=== PATIENT | male | born 1990 | race Caucasian/White ===

== ENCOUNTER 2016-07-11 13:33 | Emergency (ER) | payer SELFPAY ==
--- NOTE | 2016-07-11 14:24 | ED.PDOC ---
History of Present Illness - General Chief Complaint: Abdominal Pain Stated Complaint: left abdominal discomfort Time Seen by Provider: 07/11/16 14:22 Information Source: patient Exam Limitations: no limitations - History of Present Illness Initial Comments: He stated watching Tv at home last and had sudden on set of luq with nausea no vomiting pain got less able to eat breakfast but had recurrent episode this afternoon. Abdominal Pain Onset Location: LUQ Pain Radiation: no radiation Quality: dull, intermittent Timing/Duration: 1/2 hour, getting worse Improving Factors: nothing Worsening Factors: nothing Associated Symptoms: nausea/vomiting Review of Systems - Review of Systems Constitutional: States: no symptoms reported EENTM: States: no symptoms reported Respiratory: States: no symptoms reported Cardiology: States: no symptoms reported Gastrointestinal/Abdominal: States: see HPI Genitourinary: States: no symptoms reported Musculoskeletal: States: no symptoms reported Skin: States: no symptoms reported Neurological: States: no symptoms reported Endocrine: States: no symptoms reported Past Medical History (General) - Patient Medical History Hx Stroke: No Hx Asthma: Yes Hx Congestive Heart Failure: No Hx Diabetes: No Hx Hepatitis C: Yes Hx MRSA: No Surgical History: no surgical history - Vaccination History Hx Tetanus, Diphtheria Vaccination: Yes - within 5 years Hx Influenza Vaccination: No Hx Pneumococcal Vaccination: No - Social History Hx Tobacco Use: Yes Hx Alcohol Use: No Hx Substance Use: Yes - meth:1-2/wk Hx Substance Use Treatment: No Hx Depression: No - Female History Patient : No Family Medical History - Family History Mother Family History: No Known Living Status: Still Living Physical Exam - Physical Exam General Appearance: Alert, Anxious, No apparent distress Eyes, Ears, Nose, Throat Exam: PERRL/EOMI, normal ENT inspection, TMs normal, pharynx normal Neck: non-tender, full range of motion, supple, normal inspection Respiratory: chest non-tender, lungs clear, normal breath sounds, no respiratory distress Cardiovascular/Chest: regular rate, rhythm, no edema, no gallop, no JVD, no murmur Peripheral Pulses: No deficit Gastrointestinal/Abdominal: normal bowel sounds, tenderness - luq no peritoneal signs Progress - Results/Orders Results/Orders: 07/11/16 15:16 Hold Metformin x 48Hrs [id number] Laboratory Results WBC 11.0 K/mm3 (4.8-10.8) H 07/11/16 14:38 RBC 5.14 M/mm3 (4.70-6.10) 07/11/16 14:38 Hgb 15.3 gm/dL (14.0-18.0) 07/11/16 14:38 Hct 45.7 % (42.0-52.0) 07/11/16 14:38 MCV 88.9 fl (80.0-94.0) 07/11/16 14:38 MCH 29.9 pg (27.0-31.0) 07/11/16 14:38 MCHC 33.6 g/dL (33.0-37.0) 07/11/16 14:38 RDW 14.1 % (11.5-14.5) 07/11/16 14:38 Plt Count 156 K/mm3 (130-400) 07/11/16 14:38 MPV 9.5 fl (7.40-10.4) 07/11/16 14:38 Absolute Neuts (auto) 6.20 K/uL (1.8-6.8) 07/11/16 14:38 Absolute Lymphs (auto) 3.80 K/uL (1.0-3.4) H 07/11/16 14:38 Absolute Monos (auto) 0.80 K/uL (0.2-0.8) 07/11/16 14:38 Absolute Eos (auto) 0.10 K/uL (0.0-0.4) 07/11/16 14:38 Absolute Basos (auto) 0.00 K/uL (0.0-0.1) 07/11/16 14:38 Neutrophils % 56.2 % (42.0-78.0) 07/11/16 14:38 Lymphocytes % 34.8 % (20.0-50.0) 07/11/16 14:38 Monocytes % 7.4 % (2.0-9.0) 07/11/16 14:38 Eosinophils % 1.2 % (1.0-5.0) 07/11/16 14:38 Basophils % 0.4 % (0.0-2.0) 07/11/16 14:38 Sodium 137 mmol/L (135-145) 07/11/16 14:38 Potassium 3.8 mmol/L (3.6-5.0) 07/11/16 14:38 Chloride 101 mmol/L (101-111) 07/11/16 14:38 Carbon Dioxide 30 mmol/L (21-31) 07/11/16 14:38 Anion Gap 9.8 (12-18) L 07/11/16 14:38 BUN 19 mg/dL (7-18) H 07/11/16 14:38 Creatinine 0.77 mg/dL (0.6-1.3) 07/11/16 14:38 BUN/Creatinine Ratio 24.7 (10-20) H 07/11/16 14:38 Random Glucose 87 mg/dL (70-105) 07/11/16 14:38 Serum Osmolality 275.4 mOsm/L (275-295) 07/11/16 14:38 Calcium 9.3 mg/dL (8.4-10.2) 07/11/16 14:38 Total Bilirubin 0.6 mg/dL (0.2-1.0) 07/11/16 14:38 AST 78 IU/L (10-42) H 07/11/16 14:38 ALT 148 IU/L (10-60) H 07/11/16 14:38 Alkaline Phosphatase 52 IU/L (42-121) 07/11/16 14:38 Serum Total Protein 7.1 gm/dL (6.4-8.2) 07/11/16 14:38 Albumin 4.3 g/dl (3.2-5.5) 07/11/16 14:38 Globulin 2.8 gm/dL (2.3-3.5) 07/11/16 14:38 Albumin/Globulin Ratio 1.5 (1.1-1.9) 07/11/16 14:38 Lipase 24 U/L (22-51) 07/11/16 14:38 Urine Color Yellow (Yellow) 07/11/16 15:24 Urine Appearance Clear (Clear) 07/11/16 15:24 Urine pH 5.5 (4.5-7.8) 07/11/16 15:24 Ur Specific [place] 1.025 (1.005-1.030) 07/11/16 15:24 Urine Protein Negative mg/dL 07/11/16 15:24 Urine Glucose (UA) Negative mg/dL (Negative) 07/11/16 15:24 Urine Ketones Negative mg/dL (NEGATIVE) 07/11/16 15:24 Urine Blood Negative (Negative) 07/11/16 15:24 Urine Nitrite Negative 07/11/16 15:24 Urine Bilirubin Negative (NEGATIVE) 07/11/16 15:24 Urine Urobilinogen 0.2 mg/dL (0.2-1.0) 07/11/16 15:24 Ur Leukocyte Esterase Negative (Negative) 07/11/16 15:24 Urine RBC 0 /hpf 07/11/16 15:24 Urine WBC 0 /hpf 07/11/16 15:24 Ur Epithelial Cells 1-3 /hpf 07/11/16 15:24 Urine Bacteria 0 07/11/16 15:24 Urine Opiates Screen Negative ng/mL (2000) 07/11/16 14:27 Urine Barbiturates Negative ng/mL (200) 07/11/16 14:27 Ur Phencyclidine Scrn Negative ng/mL (25) 07/11/16 14:27 U Amphetamin/Meth Scrn Negative ng/mL (1000) 07/11/16 14:27 U Benzodiazepines Scrn Positive ng/mL (200) H 07/11/16 14:27 U Cocaine Metab Screen Negative ng/mL (300) 07/11/16 14:27 U Cannabinoids Screen Negative ng/mL (50) 07/11/16 14:27 - EKG/XRAY/CT CT: abd/pelvis with iv contrast no acute pathology noted Departure - Departure Clinical Impression: Abdominal pain, acute, left upper quadrant Hepatitis C Qualifiers: Viral hepatitis chronicity: unspecified Time of Disposition: 16:40 Disposition: Discharge to Home or Self Care Condition: Good Departure Forms: ED Discharge - Pt. Copy, Patient Portal Self Enrollment Instructions: DI for Abdominal Pain-Adult Diet: other - AVOID GREASY,SPICY FOODS Prescriptions: Ranitidine HCl [Eql Acid Kiln Door Builder Maximum] 150 mg PO BID #60 tab Acetaminophen W/ Codeine [Tylenol W/ CODEINE #3] 1 ea PO TID PRN #10 PRN Reason: Pain Home Medications: Ambulatory Orders Acetaminophen W/ Codeine [Tylenol W/ CODEINE #3] 1 ea PO TID PRN #10 07/11/16 Ranitidine HCl [Eql Acid Kiln Door Builder Maximum] 150 mg PO BID #60 tab 07/11/16 Additional Instructions: WILL FOLLOW UP WITH HER SISTER joel KYLE
[2016-07-11] MEDS ORDERED: PROMETHAZINE HCL INJ 25 MG/ML VIAL IM ONE (14:28)
[2016-07-11] MEDS ORDERED: LACTATED RINGERS 1,000 ML IVS ONE (14:29)
--- NOTE | 2016-07-11 16:07 | CT ---
EXAM DESCRIPTION: CT ABDOMEN AND PELVIS WITH INTRAVENOUS CONTRAST CLINICAL HISTORY: Abdominal pain. COMPARISON: None. TECHNIQUE: CT of the abdomen and pelvis was performed with intravenous contrast. Oral contrast was not given. The patient was injected with intravenous contrast. FINDINGS: The lung bases included on the exam demonstrate no acute findings. The liver, pancreas, spleen and the bilateral adrenal glands are unremarkable in appearance. The gallbladder is contracted The bilateral kidneys enhance in a normal fashion, without any evidence of hydronephrosis or focal mass lesions. The bilateral ureters are unremarkable. The urinary bladder is unremarkable. There is normal contrast opacification of the main as well as right and left portal veins and the splenic vein. The small bowel is unremarkable. There is no CT evidence of acute appendicitis. The ileocecal junction is unremarkable. There is no ileocecal mesenteric adenitis. There is no large bowel wall obstruction, colitis or acute diverticulitis. There is no pathological retroperitoneal or pelvic lymphadenopathy, free fluid or free air. There is no clinically significant aneurysmal dilatation of the abdominal aorta. There is no CT evidence of any clinically significant inguinal or ventral hernia. The visualized lower thoracic and the lumbar spine is unremarkable. The remainder of the pelvic structures appear unremarkable. IMPRESSION: There are no acute or significant findings on the current study Electronically signed by: Jose Heart MD 07/11/2016 16:05
[2016-07-11 17:05] VITALS: BP 128/79; TEMP 99; O2SAT 97
== END 2016-07-11 17:02 | disposition home or self-care (01) ==
LOC: ER 13:33
DX: R10.12 Left upper quadrant pain (principal); B19.20 Unspecified viral hepatitis C without hepatic coma; J45.909 Unspecified asthma, uncomplicated; Z87.891 Personal history of nicotine dependence
CPT/HCPCS: 36415; 74177; 80053; 81001; 83690; 85025; G0479; J2550; J7120

== ENCOUNTER 2017-07-30 18:41 | Emergency (ER) | payer OTHER ==
[2017-07-30 18:57] VITALS: TEMP 97.3
[2017-07-30] MEDS ORDERED: SODIUM CHLORIDE 0.9% 1000ML 1,000 ML IVS ONE (19:02)
[2017-07-30] MEDS ORDERED: ONDANSETRON INJ 4 MG/2 ML VIAL IV ONE (19:03)
--- NOTE | 2017-07-30 19:06 | ED.PDOC ---
History of Present Illness - General Chief Complaint: Headache Stated Complaint: headache, nausea Time Seen by Provider: 07/30/17 19:01 Source: patient, police Exam Limitations: intoxication - History of Present Illness Timing/Duration: unsure, 4-6 hours Severity: severe Associated Symptoms: headaches, malaise, nausea/vomiting Allergies/Adverse Reactions: Allergies Ketorolac Tromethamine [From Toradol] Allergy (Verified 07/11/16 14:13) Vomitting Penicillin G Adverse Reaction (Verified 05/30/16 18:19) Home Medications: Ambulatory Orders Acetaminophen W/ Codeine [Tylenol W/ CODEINE #3] 1 ea PO TID PRN #10 07/11/16 Ranitidine HCl [Eql Acid Wholesale Buyer Maximum] 150 mg PO BID #60 tab 07/11/16 Ondansetron Tab [Zofran Tab] 4 mg PO Q4HR #15 tab 07/30/17 Review of Systems - Review of Systems Constitutional: States: chills. Denies: fever EENTM: Denies: nose congestion, throat pain Respiratory: Denies: cough, short of breath Cardiology: Denies: chest pain, edema Gastrointestinal/Abdominal: States: nausea, vomiting. Denies: abdominal pain Genitourinary: States: no symptoms reported. Denies: dysuria Musculoskeletal: Denies: joint pain, joint swelling, muscle pain, neck pain Skin: Denies: rash Neurological: States: headache, weakness Endocrine: States: no symptoms reported Hematologic/Lymphatic: States: no symptoms reported Past Medical History (General) - Patient Medical History Hx Seizures: Yes Hx Stroke: No Hx Asthma: Yes Hx Congestive Heart Failure: No Hx Diabetes: No Hx Hepatitis C: Yes Hx MRSA: No Surgical History: no surgical history - Vaccination History Hx Tetanus, Diphtheria Vaccination: Yes Hx Influenza Vaccination: No Hx Pneumococcal Vaccination: No - Social History Hx Tobacco Use: Yes Hx Alcohol Use: No Hx Substance Use: Yes - heroin, meth, xanax, marijuanna Hx Substance Use Treatment: No Hx Depression: No - Female History Patient : No Family Medical History - Family History Mother Family History: No Known Living Status: Still Living Physical Exam - Physical Exam General Appearance: Lethargic, Unkempt Eye Exam: bilateral normal Ears, Nose, Throat: hearing grossly normal, normal pharynx Neck: non-tender, full range of motion Respiratory: lungs clear, normal breath sounds, no respiratory distress Cardiovascular/Chest: normal peripheral pulses, regular rate, rhythm, no edema Gastrointestinal/Abdominal: normal bowel sounds, tenderness Rectal Exam: deferred Back Exam: normal inspection Extremity: no pedal edema, other - multiple track coleman on both arms from iv drug abuse Neurologic: normal mood/affect, oriented x 3 Skin Exam: normal color, warm/dry, other - no cellulitis on arms Departure - Departure Clinical Impression: Drug abuse Headache Qualifiers: Headache type: unspecified Vomiting Qualifiers: Vomiting Intractability: non-intractable Disposition: Discharge to Home or Self Care Condition: Fair Departure Forms: ED Discharge - Pt. Copy, Patient Portal Self Enrollment Instructions: DI for Headache Prescriptions: Ondansetron Tab [Zofran Tab] 4 mg PO Q4HR #15 tab Home Medications: Ambulatory Orders Acetaminophen W/ Codeine [Tylenol W/ CODEINE #3] 1 ea PO TID PRN #10 07/11/16 Ranitidine HCl [Eql Acid Wholesale Buyer Maximum] 150 mg PO BID #60 tab 07/11/16 Ondansetron Tab [Zofran Tab] 4 mg PO Q4HR #15 tab 07/30/17
[2017-07-30] MEDS ORDERED: ACETAMINOPHEN 500 MG TAB ONE (19:27)
--- NOTE | 2017-07-30 19:47 | RAD ---
EXAM DESCRIPTION: Chest,1 View CLINICAL HISTORY: cough COMPARISON: None. FINDINGS: Cardiac silhouette is within normal limits. There is no focal parenchymal or pleural disease. Visualized osseous structures are within normal limits. IMPRESSION: No evidence of acute cardiopulmonary disease. Electronically signed by: Nash Ca 07/30/2017 7:46 PM [facility]PUT[facility]AIL[employer]
[2017-07-30] MEDS ORDERED: IBUPROFEN 200 MG TAB PO ONE (20:00)
[2017-07-30] MEDS ORDERED: IBUPROFEN 200 MG TAB ONE (20:01)
[2017-07-30] MEDS ORDERED: PROMETHAZINE HCL 25 MG TAB PO ONE (22:38)
[2017-07-30 22:43] VITALS: BP 102/53; O2SAT 96
== END 2017-07-30 23:00 | disposition home or self-care (01) ==
LOC: ER 18:41
DX: R51 Headache (principal); R11.10 Vomiting, unspecified; F19.10 Other psychoactive substance abuse, uncomplicated; Z86.19 Personal history of other infectious and parasitic diseases
CPT/HCPCS: 36415; 71045; 80053; 80307; 81001; 85025; J2405; J7030; Q0169

== ENCOUNTER 2018-04-25 09:49 | Emergency (ER) | payer SELFPAY ==
[2018-04-25 10:12] VITALS: TEMP 98.3
[2018-04-25] MEDS ORDERED: methylPREDNISolone ACETATE 80 MG/ML VIAL IM ONE (10:21)
--- NOTE | 2018-04-25 10:42 | RAD ---
EXAM DESCRIPTION: Elbow,Right 3 Views CLINICAL HISTORY: 27 years Male, OLECRANON LAT EPICONDYLE TTP, HAND PARESTHESIAS COMPARISON: None available. FINDINGS: The visualized bones are well-mineralized.No acute fracture or dislocation. The soft tissues appear grossly unremarkable. IMPRESSION: Normal radiographs of the right elbow. Electronically signed by: Rain Arce MD 04/25/2018 10:40 AM CDT
--- NOTE | 2018-04-25 10:51 | ED.PDOC ---
History of Present Illness - General Chief Complaint: Upper Extremity Injury Stated Complaint: right arm p;ain Time Seen by Provider: 04/25/18 10:09 Source: patient Exam Limitations: no limitations - History of Present Illness Initial Comments: R FOREARM PAIN. 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 HE NEVER HAD IT LOOKED AT. FINGERS GOING NUMB (IN ALL 5 DIGITS) AND GRAPHIC DESIGNER WEAKENING. HAS R ELBOW PAIN AT REST. Occurred: other - 2 MOS AGO Pain - Upper Extremity: moderate: Forearm, right, Hand, right, severe: Elbow, right Method of Injury: fell - PLUS REPETITIVE USE AT WORK. Improving Factors: rest Worsening Factors: other - USAGE Allergies/Adverse Reactions: Allergies Ketorolac Tromethamine [From Toradol] Allergy (Verified 07/11/16 14:13) Vomitting Penicillin G Adverse Reaction (Verified 05/30/16 18:19) Home Medications: Ambulatory Orders NK [NK] 04/25/18 Review of Systems - Review of Systems Constitutional: States: no symptoms reported EENTM: States: no symptoms reported Respiratory: States: no symptoms reported Cardiology: States: no symptoms reported Gastrointestinal/Abdominal: States: no symptoms reported Genitourinary: States: no symptoms reported Musculoskeletal: States: see HPI, joint pain. Denies: back pain, muscle stiffness Skin: States: no symptoms reported Neurological: States: numbness, paresthesia, weakness Endocrine: States: no symptoms reported Hematologic/Lymphatic: States: no symptoms reported All other Systems: Reviewed and Negative Past Medical History (General) - Patient Medical History Hx Seizures: Yes Hx Stroke: No Hx Asthma: Yes Hx Congestive Heart Failure: No Hx Diabetes: No Hx Hepatitis C: Yes Hx MRSA: No Surgical History: no surgical history - Vaccination History Hx Tetanus, Diphtheria Vaccination: Yes Hx Influenza Vaccination: No Hx Pneumococcal Vaccination: No - Social History Hx Tobacco Use: Yes Hx Alcohol Use: No Hx Substance Use: Yes - heroin, meth, xanax, marijuanna Hx Substance Use Treatment: No Hx Depression: No - Female History Patient : No Family Medical History - Family History Father Family History: Unknown Living Status: Age at (years of age): 21 Cause of : Brain Aneurysm Mother Family History: No Known Living Status: Still Living Physical Exam - Physical Exam General Appearance: Alert, Well Developed Eyes, Ears, Nose, Throat Exam: PERRL/EOMI, normal ENT inspection Neck: non-tender, full range of motion Cardiovascular/Respiratory: regular rate, rhythm, no M/R/G Abdominal Exam: non-tender, no organomegaly Back Exam: normal inspection, no CVA tenderness Shoulder Exam: normal inspection, non-tender, no evidence of injury Elbow/Forearm Exam: bone tenderness, pain, soft tissue tenderness, swelling - R OLECRANON AND LATERAL EPICONDYLE TTP ALONG BONY ASPECTS. POS R PROXIMAL FOREARM MILD SWELLING AND SOFT TISSUE TTP (BUT NOT TO WHERE I'M CONCERNED ABOUT COMPARTMENT SYNDROME). NO ERYTHEMA. WRIST AND HAND NTTP. 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 Mental Status: alert, oriented x 3 Skin Exam: normal color, warm/dry Progress - Progress Progress: 04/25/18 11:05 PT REFUSED THE STEROID SHOT. HE REQUESTED IBUPROFEN INSTEAD. 04/25/18 12:16 XRAY NEG. I SUSPECT CUBITAL TUNNEL SYNDROME WITH ULNAR OR RADIAL NERVE ENTRAPMENT, SINCE PT C/O OF NUMBNESS IN ALL 5 DIGITS. SX C/W LATERAL EPICONDYLITIS. RECOMMEND WRIST/FOREARM BRACE. PT REFUSED MEDROL DOSE PACK TO DECREASE THE INFLAMMATION. I RECOMMENDED HE F/U W/ DR. KRISHNA, ORTHO, FOR FURTHER EVALUATION. Departure - Departure Clinical Impression: Right elbow pain, Radiculopathy of arm, Lateral epicondylitis, right elbow, Cubital tunnel syndrome on right Disposition: Discharge to Home or Self Care Condition: Fair Departure Forms: ED Discharge - Pt. Copy, Patient Portal Self Enrollment Instructions: Cubital Tunnel Syndrome (DC) Diet: resume usual diet Activity: no pushing/pulling with affected limb Referrals: Bahman Krishna MD [Active Staff] - 1-2 Weeks Home Medications: Ambulatory Orders NK [NK] 04/25/18 Additional Instructions: Please follow-up with Dr. Krishna, orthopedics, to evaluate further for ulnar or radial nerve entrapment, resulting in the tingling and weakness of your hand.
[2018-04-25] MEDS ORDERED: IBUPROFEN 200 MG TAB PO ONE (11:01)
[2018-04-25 12:15] VITALS: BP 142/68; O2SAT 100
== END 2018-04-25 12:17 | disposition home or self-care (01) ==
LOC: ER 09:49
DX: M77.11 Lateral epicondylitis, right elbow (principal); G56.21 Lesion of ulnar nerve, right upper limb; J45.909 Unspecified asthma, uncomplicated; Z87.891 Personal history of nicotine dependence; Z86.19 Personal history of other infectious and parasitic diseases; Z88.0 Allergy status to penicillin; Z88.8 Allergy status to other drugs, medicaments and biological substances
CPT/HCPCS: 73080; J1030

== ENCOUNTER 2018-08-10 07:40 | Emergency (ER) | payer SELFPAY ==
[2018-08-10] MEDS: HYDROcodone 7.5MG/APAP 325MG 1 EA TAB PO ONE (08:56)
[2018-08-10] MEDS: SODIUM CHLORIDE 0.9% 1000ML 1,000 ML IVS ONE ×2 (09:50→11:39)
--- NOTE | 2018-08-10 09:56 | CT ---
EXAM DESCRIPTION: Head CLINICAL HISTORY: worst headache of life, frontal, drowsy COMPARISON: None TECHNIQUE: Noncontrast transaxial CT images of the head are obtained from base to vertex. Moderate streak artifact from patient motion limits detailed evaluation This exam was performed according to our departmental dose-optimization program, which includes automated exposure control, adjustment of the mA and/or kV according to patient size and/or use of iterative reconstruction technique. FINDINGS: The midline structures are not displaced. The sulci are age appropriate. The lateral, third, and fourth ventricles are normal in size, shape, and anatomic positioning. There is no evidence of mass, mass effect, hydrocephalus, or acute intracranial hemorrhage. No abnormal extra axial fluid collections are seen. Normal warren-white differentiation is seen. The visualized bone windows show no depressed skull fracture or significant abnormality. Mild mucosal thickening is seen in the ethmoid air cells and left maxillary sinus.. IMPRESSION: 1. No acute abnormality is seen on noncontrast CT of the head. 2. Mild subacute to chronic ethmoid and left maxillary sinusitis. Electronically signed by: Taurus Ptety MD 08/10/2018 9:54 AM [facility]
--- NOTE | 2018-08-10 11:31 | ED.PDOC ---
History of Present Illness - General Chief Complaint: Dental/Mouth Stated Complaint: Pt complains of severe teeth pain since 08/08 @ 1200 Time Seen by Provider: 08/10/18 07:48 Source: patient Exam Limitations: no limitations - History of Present Illness Initial Comments: the patient is a 27-year-old male presenting to the emergency room secondary to a headache. He reports that one of the worst his hand. He has had chronic daily headaches almost his entire life. It does not appear that he has had any previous extensive workup. He is well-known to nursing staff here as a drug user, including heroin in the past. He does appear moderately intoxicated though he is oriented 4. He is drowsy. No focal neurological deficits. Pupils are 2 mm bilaterally and minimally reactive. He does have poor dentition. He does appear to be intoxicated and likely coming down off of methamphetamine given his presentation. The patient reports that he has been up most of the night. Blood drug screen is a send out and the patient of course spilled his urinalysis sample so we are unable to test his urine at this time for drugs. no known trauma. No fever. No nuchal rigidity. No focal neurological changes. Timing/Duration: unsure Severity: severe Improving Factors: nothing Worsening Factors: nothing Associated Symptoms: malaise Allergies/Adverse Reactions: Allergies Ketorolac Tromethamine [From Toradol] Allergy (Verified 08/10/18 10:34) Vomitting Penicillin G Adverse Reaction (Verified 08/10/18 10:34) Home Medications: Ambulatory Orders NK 04/25/18 Review of Systems - Review of Systems Constitutional: States: malaise EENTM: States: nose congestion Respiratory: States: no symptoms reported Cardiology: States: no symptoms reported Gastrointestinal/Abdominal: States: no symptoms reported Genitourinary: States: no symptoms reported Musculoskeletal: States: no symptoms reported Skin: States: no symptoms reported Neurological: States: headache Endocrine: States: no symptoms reported All other Systems: No Change from Baseline Past Medical History (General) - Patient Medical History Hx Seizures: Yes Hx Stroke: No Hx Asthma: Yes Hx of COPD: No Hx Congestive Heart Failure: No Hx Diabetes: No Hx Hepatitis C: Yes Hx MRSA: No Surgical History: no surgical history - Vaccination History Hx Tetanus, Diphtheria Vaccination: Yes Hx Influenza Vaccination: Yes Hx Pneumococcal Vaccination: No Immunizations Up to Date: Yes - Social History Hx Tobacco Use: Yes Hx Alcohol Use: Yes Hx Substance Use: Yes - Not current Hx Substance Use Treatment: No Hx Depression: No - Female History Patient is a Female of Child Bearing Age (10 -59 yrs old): No Patient : No Family Medical History - Family History Father Family History: Unknown Living Status: Age at (years of age): 21 Cause of : Brain Aneurysm Mother Family History: No Known Living Status: Still Living Physical Exam - Physical Exam General Appearance: Other - he is drowsy. Eyes are bloodshot. He is oriented 4. Eye Exam: bilateral normal - bloodshot bilaterally Ears, Nose, Throat: hearing grossly normal, nasal congestion, other - poor dentition Neck: full range of motion, supple Respiratory: lungs clear, normal breath sounds, no respiratory distress, no accessory muscle use Cardiovascular/Chest: normal peripheral pulses, regular rate, rhythm, no edema Peripheral Pulses: radial,right: 2+, radial,left: 2+, dorsalis pedis,right: 2+, dorsalis pedis,left: 2+ Gastrointestinal/Abdominal: non tender, soft Rectal Exam: deferred Back Exam: no CVA tenderness, no vertebral tenderness Extremity: normal range of motion, non-tender, normal inspection, no pedal edema, normal capillary refill Neurologic: casey saw operator II-XII nml as tested, no motor/sensory deficits, oriented x 3 Skin Exam: normal color - multiple tattoos Comments: Vital Signs - 24 hr 08/10/18 08/10/18 08/10/18 07:55 08:41 09:46 Temperature 96.4 F L Pulse Rate [ 98 H 107 H 70 Left Radial] Respiratory 18 16 16 Rate Blood Pressure 101/77 97/68 100/70 [Left Arm] O2 Sat by Pulse 98 97 94 L Oximetry 08/10/18 08/10/18 10:28 11:30 Temperature Pulse Rate [ 83 65 Left Radial] Respiratory 16 16 Rate Blood Pressure 108/66 93/40 [Left Arm] O2 Sat by Pulse 95 90 L Oximetry Progress - Progress Progress: 08/10/18 11:33 the patient's a 27-year-old male presenting with a significant headache. This is most likely due to substance abuse and coming down from methamphetamine. It is highly suspected that the patient has opiates and methamphetamines onboard. We have been unable to check a urine drug screen to this point as the patient accidentally spilled a collection cup in the bathroom. No focal neurological changes. Head CT is negative. Laboratory work is otherwise reassuring. Blood drug screen is a send out, so little use at this time. He does have some very mild rhabdomyolysis which can go along with the methamphetamine use. He does have some mild dehydration and is receiving a liter of IV NS. We are going to continue to watch him for now. pressures running low normal range and the patient is responsive to voice and oriented. 08/10/18 14:14 the patient has been monitored for an extended period of time. Blood pressures continue to remain in the low normal range which is certainly appropriate for a young healthy male. No worsening of any mental status. No evidence of meningitis or encephalitis. The patient has received an additional liter of IV fluids. He reports that his headache is gone. He obviously needs to avoid substance abuse in the future. 08/10/18 14:17 ultimately the patient was unwilling to give a urinalysis to check for a urine drug screen. - Results/Orders Results/Orders: Laboratory Results - last 24 hr 08/10/18 08/10/18 08/10/18 09:26 09:26 09:26 WBC 8.4 RBC 4.69 L Hgb 14.0 Hct 41.4 L MCV 88.2 MCH 29.8 MCHC 33.7 RDW 13.3 Plt Count 175 MPV 8.4 Absolute Neuts (auto) 4.80 Absolute Lymphs (auto) 2.70 Absolute Monos (auto) 0.80 Absolute Eos (auto) 0.10 Absolute Basos (auto) 0.00 Neutrophils % 57.3 Lymphocytes % 31.9 Monocytes % 9.5 H Eosinophils % 0.9 L Basophils % 0.4 Sodium 135 Potassium 4.1 Chloride 102 Carbon Dioxide 28 Anion Gap 9.1 L BUN 17 Creatinine 0.92 BUN/Creatinine Ratio 18.5 Random Glucose 85 Serum Osmolality 270.9 L Lactic Acid 0.6 Calcium 8.7 Total Bilirubin 0.7 AST 41 ALT 46 Alkaline Phosphatase 50 Ammonia Creatine Kinase 418 H* CK-MB (CK-2) 8.4 H* CK-MB (CK-2) % 2.01 Troponin I < 0.02 Serum Total Protein 6.8 Albumin 4.0 Globulin 2.8 Albumin/Globulin Ratio 1.4 08/10/18 09:28 WBC RBC Hgb Hct MCV MCH MCHC RDW Plt Count MPV Absolute Neuts (auto) Absolute Lymphs (auto) Absolute Monos (auto) Absolute Eos (auto) Absolute Basos (auto) Neutrophils % Lymphocytes % Monocytes % Eosinophils % Basophils % Sodium Potassium Chloride Carbon Dioxide Anion Gap BUN Creatinine BUN/Creatinine Ratio Random Glucose Serum Osmolality Lactic Acid Calcium Total Bilirubin AST ALT Alkaline Phosphatase Ammonia 36 H Creatine Kinase CK-MB (CK-2) CK-MB (CK-2) % Troponin I Serum Total Protein Albumin Globulin Albumin/Globulin Ratio head CT shows no acute pathology. Departure - Departure Clinical Impression: Dehydration Headache Qualifiers: Headache type: unspecified Headache chronicity pattern: unspecified pattern Intractability: not intractable Qualified Code(s): R51 - Headache Rhabdomyolysis Qualifiers: Rhabdomyolysis type: non-traumatic Qualified Code(s): M62.82 - Rhabdomyolysis Disposition: Discharge to Home or Self Care Condition: Fair Departure Forms: ED Discharge - Pt. Copy, Patient Portal Self Enrollment Instructions: Dehydration, Adult (DC) Diet: regular diet Activity: increase activity as tolerated Home Medications: Ambulatory Orders NK 04/25/18 Additional Instructions: The patient needs to keep well-hydrated and oriented to prevent dehydration headaches. He needs to avoid substance abuse. He needs to follow-up with his primary care doctor in the next week. ER warnings were given for any significant worsening.
[2018-08-10 13:32] VITALS: O2SAT 95
[2018-08-10 14:29] VITALS: BP 101/44; TEMP 96.9
== END 2018-08-10 14:29 | disposition home or self-care (01) ==
LOC: ER 07:40
DX: R51 Headache (principal); E86.0 Dehydration; M62.82 Rhabdomyolysis; K08.89 Other specified disorders of teeth and supporting structures; J45.909 Unspecified asthma, uncomplicated; Z86.19 Personal history of other infectious and parasitic diseases; Z88.0 Allergy status to penicillin; Z88.8 Allergy status to other drugs, medicaments and biological substances
CPT/HCPCS: 70450; 80053; 82140; 82550; 82553; 83605; 84484; 85025; 87502; J7030

== ENCOUNTER 2020-03-24 11:22 | Emergency (ER) | payer SELFPAY ==
--- NOTE | 2020-03-24 11:28 | ED.PDOC ---
History of Present Illness - General Time Seen by Provider: 03/24/20 11:23 - History of Present Illness Initial Comments: 29 yo RHD male was working on roof and fell off his ladder with FOOSH. Did not hit head. Complains of forearm pain. Denies any other injuries. Ambulates w ithout difficulty. no prior injury. denies numbness or tingling. Allergies/Adverse Reactions: Allergies Ketorolac Tromethamine [From Toradol] Allergy (Verified 03/24/20 12:35) Vomitting Penicillin G Adverse Reaction (Verified 03/24/20 12:35) Home Medications: Ambulatory Orders NK 04/25/18 Review of Systems - Review of Systems Constitutional: Denies: chills, fever EENTM: Denies: blurred vision, throat swelling, mouth pain, mouth swelling Respiratory: Denies: short of breath, stridor, wheezing Cardiology: Denies: chest pain, palpitations, syncope Gastrointestinal/Abdominal: Denies: abdominal pain, nausea, vomiting Genitourinary: Denies: frequency, hematuria, pain Musculoskeletal: States: joint pain, joint swelling. Denies: back pain, neck pain Skin: Denies: change in color, rash Neurological: Denies: headache, numbness, paresthesia, seizure, tingling, tremors, weakness Endocrine: Denies: unexplained weight gain, unexplained weight loss Hematologic/Lymphatic: Denies: blood clots, easy bleeding, easy bruising Past Medical History (General) - Patient Medical History Hx Seizures: Yes Hx Stroke: No Hx Asthma: Yes Hx of COPD: No Hx Congestive Heart Failure: No Hx Diabetes: No Hx Hepatitis C: Yes Hx MRSA: No - Vaccination History Hx Tetanus, Diphtheria Vaccination: Yes Hx Influenza Vaccination: Yes Hx Pneumococcal Vaccination: No - Social History Hx Tobacco Use: Yes Hx Alcohol Use: Yes Hx Substance Use: Yes - Not current Hx Substance Use Treatment: No Hx Depression: No - Female History Patient : No Family Medical History - Family History Father Family History: Unknown Living Status: Age at (years of age): 21 Cause of : Brain Aneurysm Mother Family History: No Known Living Status: Still Living Physical Exam - Physical Exam General Appearance: Alert, Comfortable, No apparent distress, Well Developed, Well Groomed, Well Hydrated, Well Nourished Head Injury: no evidence of injury, other - no battler sign, Atraumatic, normocephalic without edema, discoloration or evidence of trauma. Facial bones without deformities or tenderness. Eye Exam: bilateral normal - No scleral icterus or conjunctival injection. E xtraocular muscles intact without nystagmus or diplopia. No proptosis or enophthalmos. ENT Exam: hearing grossly normal, no evidence of ENT injury, no dental injury, other - Normal appearing pinnae. No hemotympanum. Neck Exam: non-tender, full range of motion, normal alignment, normal inspection - Trachea midline. No discolorations or edema Cardiovascular/Respiratory: regular rate, rhythm, no M/R/G, normal peripheral pulses - Radial pulses 2+ bilaterally and symmetric. Dorsalis pedis pulses 2+ bilaterally and symmetric. 2+ capillary refill. No extremity edema., no JVD, other - No abrasions or ecchymosis. Chest symmetric with respirations. No chest wall tenderness. No crepitus. No step offs. Lungs are clear to auscultation bilaterally. No rales, rhonchi, wheezing or stridor. Back Exam: normal inspection, no CVA tenderness, no vertebral tenderness Extremity Exam: normal range of motion, other - right mid/lateral forearm swelling, Symmetrically palpable radial and ulnar pulses. Capillary refill <2 seconds to all digits. no snuffbox tenderness Neurologic: no motor/sensory deficits, alert, normal mood/affect, oriented x 3, other - Alert and oriented to person, place, and time. GCS 15. CN II-XII intact. Sensation grossly intact. Strength 5/5 in bilateral UE and LE. Finger to nose intact bilaterally. Skin Exam: normal color, warm/dry Comments: Hand exam: Intact sensation to light touch of the radial, median and ulnar nerves demonstrated by testing in the dorsal web space of the thumb, the distal palmar aspect of the index finger, and the lateral surface of the fifth finger. 2 point discrimination intact Intact motor function of the radial, median and ulnar nerves demonstrated by strength of extension of the isolated distal joint of the index finger, hand process engineering manager, and spreading of the 2nd through 5th digits. Intact recurrent median nerve as demonstrated by ability to move thumb fully through opposition, abduction and flexion. - [place] Coma Score Best Eye Response ([place]): (4) open spontaneously Best Verbal Response ([place]): (5) oriented Best Motor Response ([place]): (6) obeys commands [place] Total: 15 Progress - Progress Progress: Partail ddx: wrist fracture, forearm fracture, sprain. Right forearm/hand/wrist xray shows no acute fractures. Girish wrap placed. The data reviewed when caring for this patient included: nurse notes etc. . My assessment and the results of testing completed here in the ED were discussed with the patient. All questions were answered, and he express understanding of my assessment and the plan. He have been instructed to return if their symptoms worsen, and have been asked to follow up with their primary care physician to recheck today's presenting complaint. Patient states he can take motrin without any issues, Motrin/Tylenol prn pain.Alejandra Levin DO #[id number] Departure - Departure Clinical Impression: Sprain of forearm Qualifiers: Encounter type: initial encounter Laterality: right Qualified Code(s): S63.501A - Unspecified sprain of right wrist, initial encounter ICD-10 Supporting Text: fall Time of Disposition: 12:34 Disposition: Discharge to Home or Self Care Instructions: Wrist Sprain (DC) Activity: increase activity as tolerated Home Medications: Ambulatory Orders NK 04/25/18
[2020-03-24] MEDS ORDERED: HYDROcodone 5MG/APAP 325MG 1 EA TAB PO ONE (11:47)
--- NOTE | 2020-03-24 12:29 | RAD ---
EXAM DESCRIPTION: Forearm,Right (accession [id number]), Hand,Right 3 Views (accession [id number]), Wrist,Right 3 Views (accession [id number]) CLINICAL HISTORY: 29 years Male, fall COMPARISON: None. FINDINGS: RIGHT WRIST THREE X-RAY VIEWS No fracture. No dislocation. Normal bone mineralization. RIGHT HAND THREE X-RAY VIEWS No fracture of the bones of the fingers or metacarpals. No wrist fracture. No dislocation is evident. RIGHT FOREARM Negative for fracture or dislocation. Normal bony mineralization. Soft tissue swelling over the proximal dorsal forearm. No radiopaque foreign body in the area. IMPRESSION: Negative for fracture. Electronically signed by: Delon Alegria MD 03/24/2020 12:27 PM CDT
--- NOTE | 2020-03-24 12:30 | RAD ---
EXAM DESCRIPTION: Forearm,Right (accession [id number]), Hand,Right 3 Views (accession [id number]), Wrist,Right 3 Views (accession [id number]) CLINICAL HISTORY: 29 years Male, fall COMPARISON: None. FINDINGS: RIGHT WRIST THREE X-RAY VIEWS No fracture. No dislocation. Normal bone mineralization. RIGHT HAND THREE X-RAY VIEWS No fracture of the bones of the fingers or metacarpals. No wrist fracture. No dislocation is evident. RIGHT FOREARM Negative for fracture or dislocation. Normal bony mineralization. Soft tissue swelling over the proximal dorsal forearm. No radiopaque foreign body in the area. IMPRESSION: Negative for fracture. Electronically signed by: Delon Alegria MD 03/24/2020 12:27 PM CDT
--- NOTE | 2020-03-24 12:30 | RAD ---
EXAM DESCRIPTION: Forearm,Right (accession [id number]), Hand,Right 3 Views (accession [id number]), Wrist,Right 3 Views (accession [id number]) CLINICAL HISTORY: 29 years Male, fall COMPARISON: None. FINDINGS: RIGHT WRIST THREE X-RAY VIEWS No fracture. No dislocation. Normal bone mineralization. RIGHT HAND THREE X-RAY VIEWS No fracture of the bones of the fingers or metacarpals. No wrist fracture. No dislocation is evident. RIGHT FOREARM Negative for fracture or dislocation. Normal bony mineralization. Soft tissue swelling over the proximal dorsal forearm. No radiopaque foreign body in the area. IMPRESSION: Negative for fracture. Electronically signed by: Delon Alegria MD 03/24/2020 12:27 PM CDT
[2020-03-24 13:02] VITALS: BP 130/70; TEMP 97.8; O2SAT 97
== END 2020-03-24 12:46 | disposition home or self-care (01) ==
LOC: ER 11:22
DX: S63.501A Unspecified sprain of right wrist, initial encounter (principal); R56.9 Unspecified convulsions; J45.909 Unspecified asthma, uncomplicated; W11.XXXA Fall on and from ladder, initial encounter; Z86.19 Personal history of other infectious and parasitic diseases; Z87.891 Personal history of nicotine dependence; Z88.8 Allergy status to other drugs, medicaments and biological substances; Z88.0 Allergy status to penicillin; Y93.89 Activity, other specified; Y92.89 Other specified places as the place of occurrence of the external cause